=== PATIENT | female | born 1985 | race Caucasian/White ===

== ENCOUNTER → 2017-11-01 08:52 | Outpatient (CLI) | payer MEDICAID, SELFPAY ==
[2017-11-01 11:59] LABS: Progesterone Level 0.31 ng/mL (See Comment)
== END ==
PROVIDERS: Visit Provider Obstetrics & Gynecology
DX: N97.0 Female infertility associated with anovulation (principal); Z79.899 Other long term (current) drug therapy
CPT/HCPCS: 36415; 84144

== ENCOUNTER → 2017-12-11 13:19 | Outpatient (CLI) | payer MEDICAID, SELFPAY ==
[2017-12-11 16:10] LABS: Progesterone Level 6.32 ng/mL (See Comment)
== END ==
PROVIDERS: Visit Provider Obstetrics & Gynecology
DX: N97.0 Female infertility associated with anovulation (principal)
CPT/HCPCS: 36415; 84144

== ENCOUNTER 2017-12-15 20:42 | Emergency (ER) | payer MEDICAID, SELFPAY ==
[2017-12-15 20:43] VITALS: BP 174/100; PULSE 102; RESP 16; TEMP 36.3; O2SAT 96; BMI 45.3
--- NOTE | 2017-12-15 21:12 | ED.DCSUM_ITS ---
- ER Visit Summary Date of Service: 12/15/17 Chief Complaint: Nausea, vomiting, abdominal pain History of Present Illness: The patient is a 32 F presents to the emergency department nausea and vomiting. Patient states that she woke at 5 AM. She had cramping pain in the midepigastric area. She began to have multiple bouts of emesis. She states she has tried both water and a popsicle but was unable to keep them down. She did have normal bowel movement yesterday. She states the pain comes in waves. She denies any fevers or chills. She has had prior C- section, but no other abdominal surgery. She denies any recent sick contacts. Physical Examination: Vital signs reviewed General: Well-nourished, well-developed Head: Normocephalic, atraumatic Eyes: Pupils equal and reactive, extraocular muscles intact Neck, supple, no lymphadenopathy Heart: Regular rate and rhythm Respiratory: No distress, clear bilaterally Abdomen: Soft, mildly tender in the midepigastric area without rebound or guarding, nondistended, no peritoneal signs Back: Nontender Extremities: Nontender, no edema, no cords Skin: Normal color no rash Neuro: Alert and oriented, no focal or lateralizing deficits Test Results: [] Emergency Department Course and Treatment: The patient had some pain in her midepigastric area. She had a negative Rosario sign. There was no peritoneal signs. IV was established. Patient was given fluids, Zofran, and Bentyl. She had improvement of her nausea but still had some mild cramping. She was again given Toradol with resolution of her symptoms. Her labs relatively unremarkable. Her reexamination shows a soft and nontender abdomen. The patient is able to tolerate oral here. I do feel this is likely viral illness. I did parliamentary counsel the patient that if her pain returns or changes over the next 12 -24 hours, she should return to the emergency department. She is comfortable with this plan of care and will be discharged home. Treatment Plan: [] Disposition: Discharge Impression: 1. Midepigastric abdominal pain 2. Nausea vomiting This note was generated with [employer]ation software. It may contain incorrect words, spelling, and punctuation that were not noted in review of the chart prior to signing ED Disposition - Plan for ED Patient: Chief Complaint: Nausea/Vomiting Instructions: ED Nausea Vomiting Prescriptions: Ondansetron [Zofran Odt] 4 mg PO Q8H PRN PRN #10 tab PRN Reason: Nausea Dicyclomine HCl [Bentyl] 20 mg PO TIDAC #20 cap Referrals: Care Physician,No Primary [Primary Care Provider] -
[2017-12-15] MEDS: 0.9% Normal Saline 1,000 ML 1000 ML IV (21:16)
[2017-12-15] MEDS: Ondansetron 4 MG/2 ML Vial IV (21:16)
[2017-12-15] MEDS: Dicyclomine 20 MG/2 ML Vial IM (21:16)
[2017-12-15 21:27] LABS: Absolute Lymphocyte Count 0.45 X10^3/ul (0.83-4.51); Absolute Neutrophil Count 5.6 X10^3/uL (2.0-7.7); Eosinophil# 0.01 X10^3/uL; Eosinophils% 0.2 % (0-5); Hematocrit 38.1 % (37-47); Hemoglobin 12.5 g/dl (12.0-15.0); Lymphocyte # 0.45 X10^3/ul (4.0); Mean Corp Hgb Conc 32.8 g/gl (32-36); Mean Corpuscular Hgb 28.7 pg (27.0-32.0); Mean Corpuscular Volume 87.6 fL (81-99); Mean Platelet Vol. 10.4 fl (6.2-12.0); Monocyte# 0.39 X10^3/uL; Monocyte% 6.1 % (0-10); Neutrophil # 5.59 X10^3/uL (2.7-7.7); Neutrophil % 86.7 % (47-70); Platelet Count 182 K/mm3 (150-450); RBC Distribution Width CV 12.4 % (11.6-14.6); RBC Distribution Width SD 40.1 fl (35.1-43.9); Red Blood Count 4.35 M/mm3 (4.2-5.4); White Blood Count 6.4 K/mm3 (4.4-11.0)
[2017-12-15 21:28] LABS: Differential Indicated SCAN CRITERIA MET
[2017-12-15 21:43] LABS: ALB/GLOB Ratio 0.9 RATIO (0.9-2.4); AST(SGOT) 13 U/L (15-37); Alanine Aminotransfer ALT/SGPT 19 U/L (13-56); Albumin, Serum 3.2 g/dL (3.2-5.0); Alkaline Phosphatase 27 U/L (45-117); Anion Gap 8 (5-15); BUN 13 mg/dL (7-18); BUN/Creat Ratio 22.9 RATIO (10-20); Calcium,Total 7.9 mg/dL (8.5-10.1); Chloride 105 mmol/L (98-107); Creatinine, Serum 0.57 mg/dL (0.55-1.02); EST Glomerular Filtration Rate 131 mL/min (>60); Est Glom Filt Rate - Afr Amer 158 mL/min (>60); Estimated Creatinine Clearance 122.36 ml/min; Globulin 3.6 g/dL (2.2-4.2); Glucose 106 mg/dL (74-106); Lipase 59 U/L (73-393); Potassium 3.5 mmol/L (3.5-5.1); Protein, Total 6.8 g/dL (6.4-8.2); Sodium Level 134 mmol/L (136-145)
[2017-12-15 21:44] LABS: Differential Comment SCANNED
[2017-12-15] MEDS: Ketorolac 15 MG/ML Vial IV (21:59)
[2017-12-15 22:31] VITALS: BP 143/87; PULSE 80; RESP 16; O2SAT 97
[2017-12-15] MEDS: Ondansetron ODT 4 MG Tablet 12 MG PO (22:34)
[2017-12-15] MEDS: Dicyclomine 10 MG Capsule PO (22:34)
== END 2017-12-15 22:37 | disposition home or self-care (01) ==
PROVIDERS: Emergency Provider Emergency Medicine
DX: R10.13 Epigastric pain (principal); R11.2 Nausea with vomiting, unspecified
CPT/HCPCS: 80053; 83690; 85025; 96361; 96372; 96374; 96375; 99283; J7030; J2405

== ENCOUNTER → 2018-01-14 13:51 | Outpatient (CLI) | payer MEDICAID, SELFPAY ==
[2018-01-15 08:23] LABS: Progesterone Level 24.95 ng/mL (See Comment)
== END ==
PROVIDERS: Visit Provider Obstetrics & Gynecology
DX: N97.0 Female infertility associated with anovulation (principal)
CPT/HCPCS: 36415; 84144

== ENCOUNTER 2018-12-10 20:18 | Emergency (ER) | payer SELFPAY ==
[2018-12-10 20:20] VITALS: BP 153/87; PULSE 99; RESP 14; TEMP 36.8; O2SAT 98; BMI 42.2
--- NOTE | 2018-12-10 21:14 | CT_ITS ---
STUDY: CT ABDOMEN AND PELVIS WITHOUT CONTRAST REASON FOR EXAM: Female, 33 years old. Left flank pain for 2 days RADIATION DOSAGE (If Supplied By Facility): CTDIvol = ( 23.12 ) mGy, DLP = ( 1212.92 ) mGycm TECHNIQUE: Transaxial images were obtained from the dome of the diaphragm to the symphysis pubis without oral contrast, and without intravenous contrast. Sagittal and coronal images were reconstructed. Individualized dose optimization techniques were used for this CT. COMPARISON: None. FINDINGS: The visualized lung bases are unremarkable. The visualized portions of the heart are within normal limits. Normal liver. Contracted thick-walled gallbladder without calcified stones likely physiologic.. Normal spleen. Normal pancreas. Normal bilateral adrenal glands. Normal right kidney. Normal left kidney. Mild nonspecific gastric distention.. Mild nonspecific ileus with diffuse fecal retention in the colon.. No evidence for acute appendicitis. Normal abdominal aorta. Normal inferior vena cava. Normal retroperitoneum. Incompletely distended diffusely thick-walled bladder likely of no significance Normal abdominal wall. Mild degenerative changes of the thoracic spine. CT/Abdomen/Pelvis without Cont IMPRESSION: Nonspecific ileus. No evidence for small bowel obstruction or pneumoperitoneum. No evidence for hydronephrosis or ureteral calculus Electronically Signed: Tushar Evans MD at 22:04 EDT , Service support ,
[2018-12-10 21:33] LABS: Color, Urine Yellow (Yellow); Glucose, Dipstick Normal (Normal); Ketone-Dipstick 5 mg/dl (Negative); Leukocyte Esterase-Dipstick 100 /ul (Negative); Nitrite-Dipstick Negative (Negative); Occult Blood-Urine 150 /ul (Negative); Protein-Dipstick 30 mg/dl (Negative); Specific Gravity, Urine 1.025 (1.002-1.030); Urine Bilirubin Dipstick Negative (Negative); Urine Clarity Clear (Clear); Urine Urobilinogen Normal (Normal)
[2018-12-10] MEDS: 0.9% Normal Saline 1,000 ML 125 ML IV (21:34)
[2018-12-10] MEDS: Ketorolac 30 MG/ML Syringe IV (21:34)
[2018-12-10] MEDS: Ondansetron 4 MG/2 ML Vial IV (21:34)
[2018-12-10 21:35] LABS: Absolute Neutrophil Count 5.8 X10^3/uL (2.0-7.7); Basophil# 0.01 X10^3/uL; Basophil% 0.1 % (0-1); Eosinophil# 0.08 X10^3/uL; Hematocrit 37.6 % (37-47); Hemoglobin 12.7 g/dl (12.0-15.0); Lymphocyte % 18.6 % (19-41); Mean Corp Hgb Conc 33.8 g/gl (32-36); Mean Corpuscular Hgb 29.6 pg (27.0-32.0); Mean Corpuscular Volume 87.6 fL (81-99); Mean Platelet Vol. 10.9 fl (6.2-12.0); Monocyte% 8.7 % (0-10); Neutrophil # 5.76 X10^3/uL (2.7-7.7); Neutrophil % 71.4 % (47-70); Platelet Count 215 K/mm3 (150-450); RBC Distribution Width CV 12.6 % (11.6-14.6); RBC Distribution Width SD 39.8 fl (35.1-43.9); Red Blood Count 4.29 M/mm3 (4.2-5.4); White Blood Count 8.1 K/mm3 (4.4-11.0)
[2018-12-10 21:38] LABS: POSITIVE COUNT NO; POSITIVE DIFFERENTIAL NO; POSITIVE MORPHOLOGY NO
[2018-12-10 21:44] LABS: Anion Gap 6 (5-15); BUN 12 mg/dL (7-18); BUN/Creat Ratio 14.6 RATIO (10-20); Calcium,Total 8.2 mg/dL (8.5-10.1); Chloride 109 mmol/L (98-107); Creatinine, Serum 0.82 mg/dL (0.55-1.02); EST Glomerular Filtration Rate 85 mL/min (>60); Est Glom Filt Rate - Afr Amer 103 mL/min (>60); Estimated Creatinine Clearance 84.26 ml/min; Glucose 111 mg/dL (74-106); Potassium 3.9 mmol/L (3.5-5.1); Sodium Level 140 mmol/L (136-145)
[2018-12-10 21:47] LABS: Red Blood Cells-Urine 25-50 SEEN /hpf (0-5); Squamous Epithelial Cells - UA 5-10 SEEN /hpf (5-10); White Blood Cells 10-25 SEEN /hpf (0-5)
[2018-12-10 21:48] LABS: Bacteria 1+ /hpf (None Seen); Mucous, Urine 1+ /hpf (<or=2+)
[2018-12-10 22:34] LABS: Internal QC Validated? YES +Cl - CLEAR BKGD; Pregnancy, Urine Negative Negative
--- NOTE | 2018-12-10 22:34 | ED.DCSUM_ITS ---
- ER Visit Summary Date of Service: 12/10/18 Chief Complaint: [Flank pain] History of Present Illness: The patient is a 33 F [presents to the emergency department with low back and lower abdomen pain as well as urinary urgency and frequency that started 2 days ago. She rates her discomfort a 4 out of 10. Patient seen in urgent care and referred to the emergency department for hematuria. He denies any fevers. She is had no nausea or vomiting. Patient has had one other urinary tract infection the past. She is never had a kidney stone. Patient had a menstrual period on November 18 and this does not believe she is .] Physical Examination: [HEENT-PERRLA, EOMI. Cranial nerves II through XII grossly intact. TMs clear. Mucous membranes moist. No adenopathy. Cardiovascular-regular rate and rhythm without murmur or ectopy Lungs-clear to auscultation, chest wall stable without crepitus or subcu emphysema Abdomen-normoactive bowel sounds, soft. Patient has some mild tenderness over the suprapubic region and left lower quadrant. There is no rebound, rigidity, cranial signs. Patient has some mild CVA tenderness on the left. Extremities-intact ?4, normal range of motion, normal pulses, atraumatic] Test Results: [CBC with differential obtained showed a white count of 8.1, hemoglobin 12.7, hematocrit 38, placed 215. Chemistries unremarkable. Urinalysis showed 100 leukocyte esterase as well as 10-25 WBCs and 25-50 RBCs and +[address] flank showed nonspecific ileus with no evidence of urolithiasis or hydronephrosis.] Emergency Department Course and Treatment: [Initially was medicated with Toradol and was started with normal saline IV. Patient was subsequently given Cipro 500 mg p.o. and Pyridium.] Treatment Plan: [Patient will be treated with Cipro given her multiple allergies as well as Pyridium. 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 Urine culture will be sent.] Disposition: [Discharged home in stable condition. Patient advised to return if worsening pain, fever, vomiting, or conditions worsen anyway.] Impression: [Urinary tract infection] This note was generated with [employer] dictation software. It may contain incorrect words, spelling, and punctuation that were not noted in review of the chart prior to signing ED Disposition - Plan for ED Patient: Referrals: Care Physician,No Primary [Primary Care Provider] -
--- NOTE | 2018-12-10 22:38 | ED.DEP ---
ED Disposition - Plan for ED Patient: Instructions: Understanding Urinary Tract Infections (UTIs) Prescriptions: Ciprofloxacin [Cipro] 500 mg PO BID #14 tab Prescription Printed Phenazopyridine HCl [Pyridium] 200 mg PO TID #10 tab Prescription Printed Referrals: Care Physician,No Primary [Primary Care Provider] - Diane Singleton MD [STAFF PHYSICIAN] - 3-5 Days
[2018-12-10] MEDS: Ciprofloxacin 250 MG Tablet 500 MG PO (22:45)
[2018-12-10] MEDS: Phenazopyridine 95 MG Tablet 190 MG PO (22:45)
[2018-12-10 22:49] VITALS: BP 148/71; PULSE 80; RESP 16; O2SAT 98
== END 2018-12-10 22:51 | disposition home or self-care (01) ==
LOC: ED 21:31
PROVIDERS: Emergency Provider Emergency Medicine
DX: N39.0 Urinary tract infection, site not specified (principal)
CPT/HCPCS: 74176; 80048; 81001; 81025; 85025; 87086; 87088; 96361; 96374; 96375; 99285; J7030; A4216; J2405

== ENCOUNTER → 2020-02-11 | Outpatient (CLI) | payer OTHER, MEDICAID, SELFPAY ==
[2020-02-15 21:26] LABS: HPV Reflexed? NOT INDICATED
== END | disposition home or self-care (01) ==
LOC: LABSPEC 11:33
PROVIDERS: Visit Provider Obstetrics & Gynecology
DX: Z12.4 Encounter for screening for malignant neoplasm of cervix (principal)
CPT/HCPCS: 88175; G0145

== ENCOUNTER 2020-07-05 06:00 | Day surgery (SDC) | payer MEDICAID, SELFPAY ==
[2020-07-05] VITALS (7 sets, daily range): BP systolic 125–156; BP diastolic 76–107; PULSE 81–94; RESP 16; TEMP 36.4–37.2; O2SAT 92–100; BMI 43.4
[2020-07-05 06:26] LABS: Internal QC Validated? YES +Cl - CLEAR BKGD; Pregnancy, Urine Negative Negative
--- NOTE | 2020-07-05 06:51 | PCM.HPOB.BLA ---
History and Physical Surgical History and Physical Name: TIM DYE Age: 35 Date of : 1985 Tim Dye, a 35 year old female 1 0 0 0 1, for Drainage of bartholin's gland -- Tim originally arrived to office with a bulge and pain in the vagina, found to have right bartholin gland cyst. No s/p I&D Tim has worsening edema and pain of drained gland. Afebrile in office today. Not interested in having it drained in office again. Would like to be put to sleep if this needs done. Perineal lump which began 9 days ago. Tim claims it started after normal activity and has been present 9 days. It occurs all the time. It is located in the R side of perineum. Tim characterizes it to be non-radiating. Tim characterizes the quality painful. Severity is severe; Severity is intolerable It is aggravated by touch, sitting. It is relieved by none. Associated signs and symptoms are none. Additional comments are: cannot tolerate this much longer. MEDICATIONS HISTORY: Current medications prescribed by our practice are: 1. acyclovir 800 mg tablet, 1 tab PO bid x 5 days prn 2. doxycycline monohydrate 100 mg capsule, 1 PO BID 3. Flagyl 500 mg tablet, 1 PO BID 4. Sprintec (28) 0.25 mg-35 mcg tablet, One pill by mouth once a day ALLERGIES: Ceclor, PCN, Septra, Ceclor, Hives and/or rash, Penicillins, Hives and/or rash, Septra and Hives and/or rash Infections - chicken pox as a child and HSV Illnesses - chronic hives and herpes Accidents - no injuries of consequence Hospitalizations - see surgery last pap within 6 months; Review of Systems: GENERAL - Denies fever, or chills SKIN - lump on R side of vagina EYES - Denies visual changes EARS - Denies difficulty hearing NOSE - Denies nasal congestion or bleeding MOUTH - Denies sore throat or difficulty swallowing NECK - Denies pain or swelling RESPIRATORY - Denies shortness of breath or wheezing CARDIOVASCULAR - Denies palpitations or chest pain GASTROINTESTINAL - Denies nausea, vomiting, diarrhea, constipation GENITOURINARY - Denies dysuria, frequency of urination, incontinence of urine MUSCULOSKELETAL - Denies joint or muscle pain NEUROLOGICAL - Denies localized numbness or weakness PSYCHIATRIC - Denies depression or anxiety ENDOCRINE - Denies heat or cold intolerance, weight loss or gain HEMATO-IMMUNOLOGIC - Denies excessive bleeding with cuts SOCIAL HISTORY: Alcohol Use - drinks occasionally Smoking - denies smoking Diet - no particular diet Lifestyle - moderate stress lifestyle and single Exercise - none Seat Belt Use - always Employer - [employer] 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 MENSTRUAL HISTORY: LMP Known?- Definite, LMP - 01/30/20, Age Onset Menarche - 14 PAST PREGNANCIES: Total Pregnancies - 1; Full Term Pregnancies - 1; Premature - 0; Abortions, Induced - 0; Abortions, Spontaneous - 0; Ectopics - 0; Multiple Births - 0; Living Children - 1 SURGICAL HISTORY: 1. 07/23/2006 ; Gagan Gann M.D. - PHYSICAL EXAM BP- 131/96 Sitting, Left arm, regular cuff Temp- 98.4 Taken Orally Weight- 261.43877 lbs Height- 64.25 inch BMI:44.55 CONSTITUTIONAL - NAD, well nourished, and well developed SKIN - No rash, lesions, or ulcers HEENT - Normocephalic, PERRLA, EOMI NECK - No nodes, no nuchal rigidity and thyroid normal size and texture LYMPH NODES - Palpation of lymph nodes in neck and groins within normal limits LUNGS - CTA x2 without wheezes, crackles or rales CARDIAC - Regular rate and rhythm without rubs, murmurs, or gallops ABDOMEN - Without hepatosplenomegaly, distention, masses, rebound, or guarding; normal bowel sounds; no hernias EXTREMITIES - No edema or calf tenderness NEUROLOGICAL - Cranial nerves II-XII grossly intact PSYCHIATRIC - A and O to time, place, person, mood and affect External Genital Vagina - right labia with bruising and swelling at right labia majora and minora. Draining hematoma 3cm in size. Suture intact Urethra/Urethral Meatus - non-tender Bladder - non-tender Vagina - vaginal waters are pink and moist without loss of rugae and no evidence of atrophy Cervix - without cervical motion tenderness and has normal size and features without evident lesions Uterus - 5-6 cm in size, mobile and nontender Adnexa - clear without masses or tenderness ASSESSMENT/PLAN: 1. Abscess Of Bartholin's Gland Originally with right bartholin's gland abscess s/p drainage Pt now arrives with drainage, pain and swelling. Draining hematoma, discussed office drainage, pt with large amount of discomfort discomfort. For OR drainage today, Pt with COVID 04/22/20, NPO after midnight. R/b/a discussed, all questions answered, consent signed s/p Doxycycline and Flagyl
[2020-07-05] MEDS: Lactated Ringers 1,000 ML 100 ML IV ×2 (07:10→08:58)
[2020-07-05] MEDS: Bupiv/Epi 0.25% 30 ML Vial (08:32)
--- NOTE | 2020-07-05 08:36 | PCM.OPRPT ---
Report of Operation Date of Procedure: 07/05/20 Pre-Operative Diagnosis: Right labial Bartholin's gland abscess, right labial hematoma Post-Operative Diagnosis: Right labial Bartholin's gland abscess, right labial hematoma Surgery/Procedure Performed:: Incision and drainage of right labial hematoma Description of Surgical Findings:: Surgeon: Catarino Larios MD Anesthesia: General EBL: 25 cc Urine output: 200 cc IV fluids: 900 cc Complications: None Specimen: none Findings: Previous Bartholin gland incision hemostatic with single suture intact. Right labia with minimal drainage. 3-4 cm hematoma noted on right labia. Incision and drainage found to be hemostatic. No new pathology noted. Consent Patient status post right Bartholin's gland abscess drainage with pain and swelling of the right labia. Noted in office to have right labial hematoma. Discussed options including expectant management, in office drainage, and OR drainage. Based on patient's discomfort and wishes will proceed with incision and drainage of right labial hematoma. Patient understands the risk of the procedure include but are not limited to visceral or vascular injury, prolonged hospitalization, blood loss need for transfusion, reoperation. Patient stated understanding wished to proceed. All questions were answered and consent was signed Procedure: Patient was brought back to the OR where general anesthesia was found to be adequate. Antibiotics and clindamycin were given for infection prophylaxis. Patient was prepared and draped in a dorsolithotomy position with yellowfin stirrups. Above findings were noted. Using a scalpel and a Bovie incision made in the right labia. Using suture and Bovie hemostasis achieved. Minimal drainage of blood from hematoma noted, but did decrease the size of the pathology. Incision was closed in interrupted sutures. Good hemostasis noted. All counts correct x2. Patient tolerated procedure well was brought to recovery in stable condition. remote control mirror installer: None
--- NOTE | 2020-07-05 08:43 | PCM.DC.D&C ---
Discharge Diet: No Restrictions Discharge Activity: Return to Normal Activity, May Drive, May not drive while taking narcotic pain medications., May Shower, - - No tub baths for 2 weeks May resume sexual activity in: 4 weeks Weight Bearing Status: Weight bearing as tolerated Call your doctor if your incision/area has: Foul Smelling Discharge Call your doctor if you observe: Fever of 101 or Higher, Shortness of breath, Chest pain Allergies/Adverse Reactions: Allergies cefaclor [From Ceclor] Adverse Reaction (Verified 12/10/18 20:23) Hives Penicillins [PCN] Adverse Reaction (Verified 12/10/18 20:23) Hives sulfamethoxazole [From Septra] Adverse Reaction (Verified 12/10/18 20:23) Hives trimethoprim [From Septra] Adverse Reaction (Verified 12/10/18 20:23) Hives Medications to take at Discharge Oxycodone [Oxyir] 5 mg PO Q6H PRN PRN 7 Days #28 tablet 07/05/20 The following prescriptions were given: Oxycodone [Oxyir] 5 mg PO Q6H PRN PRN 7 Days #28 tablet PRN Reason: Pain Score 6-10 Transmission Status: Sent to [facility] Primary Care Physician: ESTRELLITA MOLINA [Other] Test Results: Test results from this visit will be discussed in further detail at your follow-up appointment, if applicable. Please Follow Up With: Catarino Larios MD When: 1 to 2 weeks
[2020-07-05] MEDS: oxyCODONE 5 MG Tablet PO (10:08)
== END 2020-07-05 10:32 | disposition home or self-care (01) ==
LOC: SDC 06:05 → AC 06:06
PROVIDERS: Anesthesiology; Referring Provider Obstetrics & Gynecology; Visit Provider Obstetrics & Gynecology
PROC: (CPT 56740; principal; 2020-07-05 07:15)
DX: S30.23XA Contusion of vagina and vulva, initial encounter (principal); N75.1 Abscess of Bartholin's gland; N90.89 Other specified noninflammatory disorders of vulva and perineum; Z87.891 Personal history of nicotine dependence; X58.XXXA Exposure to other specified factors, initial encounter; Y93.89 Activity, other specified; Y92.89 Other specified places as the place of occurrence of the external cause; Y99.8 Other external cause status
CPT/HCPCS: 00940; 57023; 81025; J7120; J2405